=== PATIENT | male | born 1985 | race Caucasian/White ===

== ENCOUNTER 2017-06-28 06:57 | Emergency (ER) | payer BC ==
[2017-06-28 07:04] VITALS: BP 136/95
[2017-06-28] MEDS ORDERED: METHYLPREDNISOLONE ACETATE 80 MG/ML VIAL IM ONE (07:21)
[2017-06-28] MEDS ORDERED: DEXAMETHASONE SOD PHOSPHATE 10 MG/ML VIAL IM ONE (07:21)
[2017-06-28] MEDS ORDERED: METHYLPREDNISOLONE ACETATE 80 MG/ML VIAL ONE (07:22)
[2017-06-28] MEDS ORDERED: DEXAMETHASONE SOD PHOSPHATE 10 MG/ML VIAL ONE (07:23)
--- NOTE | 2017-06-28 07:33 | ERNOTE ---
Back Pain ER HPI Presenting Symptoms: injury/pain to back Time Seen by Provider: 06/28/17 07:07 Source: patient, family Exam Limitations: no limitations Immunizations: IMMUNIZATION HX Immunizations Up to Date Yes Allergies/Adverse Reactions: Allergies brompheniramine [From Dimetapp (brompheniramine-PPA)] Allergy (Verified 07:04) phenylpropanolamine [From Dimetapp (brompheniramine-PPA)] Allergy (Verified 07:04) Home Medications: HOME MEDICATIONS Cyclobenzaprine HCl [Flexeril] 10 mg PO TID PRN #30 tab 04/27/17 [Last Taken 23:00] Nabumetone 750 mg PO BID #20 tablet 06/28/17 [Last Taken Unknown] Narrative: Pt had pain in the left buttock yesterday and today has left low back pain with radiation down the back of this thigh to his foot. Timing: Reports: getting worse Quality/Severity: Reports: severe Location of pain: Reports: lower back, radiating to lf thigh/leg Activities at Onset: Reports: none Recent Injury?: Reports: possibly Possible Precipitating Factor: Reports: lifting Modifying Factors - (Improves): Reports: nothing Modifying Factors - (Worsens): Reports: supine position - and sitting Associated Symptoms: Reports: difficulty walking. Denies: constipation/ incontinence, problems urinating, numbess/weakness in legs Review of Systems - Review of Systems Constitutional: Absent: recent illness EYE: Present: no symptoms reported ENT: Present: no symptoms reported Respiratory: Present: no symptoms reported Cardiology: Present: no symptoms reported Gastrointestinal/Abdominal: Absent: diarrhea, constipation Genitourinary: Present: no symptoms reported Musculoskeletal: Present: See HPI Skin: Present: no symptoms reported Neurological: Absent: weakness, numbness, tingling Endocrine: Present: no symptoms reported Hematologic/Lymphatic: Present: no symptoms reported Psych: Present: no symptoms reported - Patient's Past Medical History Patient History - Medical: GERD Patient History - Cardiac/Respiratory: No pertinent hx Patient History - Cancer: No Hx of Cancer Patient History - Surgical Procedures: Other Patient History - Other: None - Social History Living Situations: home Abuse History: No History of abuse Psych History: No pertinent hx Smoking Status: Never smoker Have you smoked in the past 12 months: No Do you dip or chew tobacco: No Alcohol Use: none Drug Use: none - Immunizations Immunizations Up to Date: Yes Physical Exam - Physical Exam General Appearance: Present: wd/wn, alert, mild distress Head Exam: Present: normal inspection, no evidence of injury Ears, Nose, Throat: Present: normal ENT inspection Neck: Present: normal inspection, supple Respiratory: Present: no respiratory distress, no accessory muscle use Back Exam: Present: no vertebral tenderness, decreased range of motion, other - tenderness L SI joint Extremity Exam: Present: normal inspection, non-tender, no edema Neurological Exam: Present: alert, oriented, no motor/sensory deficits, other - SLR positive at 30 degrees left, negative right Skin Exam: Present: normal color, warm/dry Lymphatic Exam: Present: no adenopathy ED Progress - Vital Signs Vital Signs: Vital Signs 06/28/17 07:00 Temperature 36.7 C Pulse Rate 86 Respiratory 14 Rate Blood Pressure 136/95 O2 Sat by Pulse 98 Oximetry - Progress/Reassessment Chief Complaint: Back Pain Progress:: Unchanged Progress Note-Subjective: 06/28/17 07:31 Discussed possible disc disease with patient and his SO and the lifestyle adjustments he may have to make. 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 I suggested he begin keeping his eye out for other work in case this does not get better as she is hoping Departure Clinical Impression: Radiculitis, lumbosacral - Departure Disposition: Home Follow Up Needed Condition: Good Instructions: Sciatica, [id number] Additional Instructions: Avoid lifting, pulling, bending as much as possible. Take prescription medication regularly until pain resolves or you are seen by a primary care physician. Make an appointment with a primary care physician and keep that appointment even if you are beginning to feel better Prescriptions: Nabumetone 750 mg PO BID #20 tablet
== END 2017-06-28 07:32 | disposition home or self-care (01) ==
LOC: ER 06:57
DX: M54.17 Radiculopathy, lumbosacral region (principal); K21.9 Gastro-esophageal reflux disease without esophagitis